=== PATIENT | male | born 1955 | race Caucasian/White ===

== ENCOUNTER → 2023-06-21 14:56 | Outpatient (REF) | payer MEDICARE, OTHER, SELFPAY | LOC: RCS 14:56 | PROVIDERS: ATTENDING PHYSICIAN Student in an Organized Health Care Education/Training Program; FAMILY PHYSICIAN Family Medicine | DX: A31.0 Pulmonary mycobacterial infection (principal) | CPT/HCPCS: 93005 ==

== ENCOUNTER → 2023-12-08 10:37 | Outpatient (REF) | payer MEDICARE, OTHER, SELFPAY | LOC: HWRAD 10:37 | PROVIDERS: ATTENDING PHYSICIAN Student in an Organized Health Care Education/Training Program; FAMILY PHYSICIAN Family Medicine; REFERRING PHYSICIAN Internal Medicine Critical Care Medicine | DX: Z86.19 Personal history of other infectious and parasitic diseases (principal); A31.0 Pulmonary mycobacterial infection; Z20.1 Contact with and (suspected) exposure to tuberculosis | CPT/HCPCS: 71250 ==

== ENCOUNTER → 2024-06-07 11:31 | Outpatient (REF) | payer MEDICARE, OTHER, SELFPAY | LOC: HWRAD 11:31 | PROVIDERS: ATTENDING PHYSICIAN Student in an Organized Health Care Education/Training Program; FAMILY PHYSICIAN Family Medicine; REFERRING PHYSICIAN Internal Medicine Critical Care Medicine | DX: A31.0 Pulmonary mycobacterial infection (principal) | CPT/HCPCS: 71250 ==

== ENCOUNTER → 2024-10-24 10:16 | Outpatient (REF) | payer MEDICARE, OTHER, SELFPAY | LOC: HWRAD 10:16 | PROVIDERS: ATTENDING PHYSICIAN Family Medicine | DX: Z20.828 Contact with and (suspected) exposure to other viral communicable diseases (principal) | CPT/HCPCS: 71046 ==

== ENCOUNTER → 2024-12-27 14:33 | Outpatient (REF) | payer MEDICARE, OTHER, SELFPAY | LOC: HWRAD 14:33 | PROVIDERS: ATTENDING PHYSICIAN Internal Medicine Critical Care Medicine; FAMILY PHYSICIAN Family Medicine; REFERRING PHYSICIAN Student in an Organized Health Care Education/Training Program | DX: A31.0 Pulmonary mycobacterial infection (principal); J45.40 Moderate persistent asthma, uncomplicated | CPT/HCPCS: 71046 ==